=== PATIENT | male | born 1980 | race Caucasian/White ===

== ENCOUNTER 2017-03-01 09:34 | Emergency (ER) | payer MEDICARE ==
[2017-03-01 09:43] VITALS: BP 153/85
[2017-03-01] MEDS ORDERED: DIPHENHYDRAMINE HCL 50 MG CAPSULE PO ONE (10:31)
[2017-03-01] MEDS ORDERED: PREDNISONE 20 MG TABLET PO ONE (10:31)
--- NOTE | 2017-03-01 10:37 | ER Document Report ---
ED Allergic Reaction - General Chief Complaint: Allergic Reaction Stated Complaint: ABDOMINAL PAIN Time Seen by Provider: 03/01/17 10:26 Notes: 36 yo male c/o rash x 2 days. pt has been taking 2 antibiotics and and antiviral medication for a possible retinal infection. pt taking Doxycycline, Bactrim and Valtrex. Finished Doxy 2 days ago, still on Bactrim and Valtrex. Rash is pruritic. pt reports some shortness of breath with chest pain and lower abdominal pain last night. Took 50mg of Benadryl at home, no chest pain or shortness of breath today. chest and abdominal muscles feel "sore" today. TRAVEL OUTSIDE OF THE [place] IN LAST 30 DAYS: No - HPI Onset: Yesterday Onset/Duration: Sudden Quality of pain: No pain Medication Exposure: Antibiotic - doxy, bactrim Skin rash / itching: Trunk, Extremities, Diffuse Associated symptoms: Chest pain, Other - abdominal pain, "like I was kicked in the gut" Similar symptoms previously: No Recently seen / treated by doctor: Yes - being seen by retinal specialist - Related Data Allergies/Adverse Reactions: No Known Allergies Allergy (Verified 03/01/17 09:43) Past Medical History - General Information source: Patient - Social History Smoking Status: Never Smoker Chew tobacco use (# tins/day): No Frequency of alcohol use: Occasional Drug Abuse: None Lives with: Spouse/Significant other Family History: Reviewed & Not Pertinent Patient has suicidal ideation: No Patient has homicidal ideation: No Renal/ Medical History: Denies: Hx Peritoneal Dialysis Musculoskeltal Medical History: Reports Other - right AKA Past Surgical History: Reports: Hx Orthopedic Surgery - Rt. AKA - Immunizations Hx Diphtheria, Pertussis, Tetanus Vaccination: Yes Review of Systems - Review of Systems Constitutional: No symptoms reported EENT: No symptoms reported Cardiovascular: denies: Chest pain, Palpitations Respiratory: denies: Cough, Short of breath, Wheezing Gastrointestinal: denies: Nausea, Vomiting Genitourinary: No symptoms reported Male Genitourinary: No symptoms reported Musculoskeletal: No symptoms reported Skin: See HPI, Rash Hematologic/Lymphatic: No symptoms reported Neurological/Psychological: No symptoms reported Physical Exam - Vital signs Vitals: Temp Pulse Resp BP Pulse Ox 98.6 F 96 16 153/85 H 97 03/01/17 09:40 03/01/17 09:40 03/01/17 09:40 03/01/17 09:40 03/01/17 09:40 Interpretation: Normal - General General appearance: Appears well In distress: None - HEENT Head: Normocephalic, Atraumatic Eyes: Normal Conjunctiva: Normal Extraocular movements intact: Yes Pupils: PERRL Mouth/Lips: Normal Mucous membranes: Moist Pharynx: Normal Neck: Normal, Supple - Respiratory Respiratory status: No respiratory distress Chest status: Nontender Breath sounds: Normal Chest palpation: Normal - Cardiovascular Rhythm: Regular Heart sounds: Normal auscultation Murmur: No - Abdominal Inspection: Normal Distension: No distension Bowel sounds: Normal Tenderness: Nontender Organomegaly: No organomegaly - Back Back: Normal, Nontender - Extremities General upper extremity: Normal inspection, Nontender, Normal color, Normal ROM , Normal temperature General lower extremity: Normal inspection, Nontender, Normal color, Normal ROM , Normal temperature, Normal weight bearing. No: Cleveland's sign - Neurological Neuro grossly intact: Yes Cognition: Normal Orientation: AAOx4 Cande Coma Scale Eye Opening: Spontaneous Cande Coma Scale Verbal: Oriented Cande Coma Scale Motor: Obeys Commands Cande Coma Scale Total: 15 Speech: Normal Motor strength normal: LUE, RUE, LLE, RLE Sensory: Normal - Psychological Associated symptoms: Normal affect, Normal mood - Skin Skin Temperature: Warm Skin Moisture: Dry Skin Color: Normal Skin irregularity: Rash - blanchable maculopapular diffuse rash to trunk and extremities. face, palms and soles spared. Course - Re-evaluation Re-evalutation: 03/01/17 10:41 H&P c/w morbilliform drug eruption. no s/s anaphylactic reaction. no periorbital edema, no airwary compromise. no increased work of breathing. will discontinue all antibiotics, treat with antihistamines and oral steroids and have patient follow up with primary care tomorrow. pt is stable for discharge and agreeable with plan - Vital Signs Vital signs: Temp Pulse Resp BP Pulse Ox 98.6 F 96 16 153/85 H 97 03/01/17 09:40 03/01/17 09:40 03/01/17 09:40 03/01/17 09:40 03/01/17 09:40 Discharge - Discharge Clinical Impression: Drug exanthem Condition: Stable Disposition: HOME, SELF-CARE Instructions: Acute Allergic Reaction to Drugs ([facility]), Antihistamines ([facility]), Steroid Medication Additional Instructions: Your rash is consistant with a drug reaction. Stopping the medication is the primary treatment Take Benadryl 50mg every 6h for itching. The oral steroids will help alleviate allergic reaction Please discontinue all current medications and follow up with your primary care tomorrow to discuss further treatment Return to ER for any worsening of status Prescriptions: Prednisone [Deltasone 10 mg Tablet] 10 mg PO ASDIR PRN #21 tablet PRN Reason:
--- NOTE | 2017-03-01 11:13 | EKG REPORT ---
SEVERITY:- NORMAL ECG - SINUS RHYTHM : Confirmed by: Mary Monzon 01-Mar-2017 11:11:41
== END 2017-03-01 11:08 | disposition home or self-care (01) ==
LOC: ER 09:34
DX: R21 Rash and other nonspecific skin eruption (principal); T78.40XA Allergy, unspecified, initial encounter; R07.9 Chest pain, unspecified; R06.02 Shortness of breath; R10.30 Lower abdominal pain, unspecified
CPT/HCPCS: 93005; 99283; 93010; A9270 ×2; J7512